=== PATIENT | male | born 1965 | race Caucasian/White ===

== ENCOUNTER 2017-03-16 18:29 | Emergency (ER) | payer SELFPAY ==
[~2017-03-16] VITALS: Ht 175.3 cm; Wt 153.0 kg
[~2017-03-16 18:29] MED LIST: CEFU1TAB43 PO; CIPR750T10 PO; Hydrocodone/Acetaminophen PO; LISI-366 PO; PERI8.6T PO
[2017-03-16 18:34] VITALS: BP 168/96; PULSE 84; RESP 16; TEMP 98; O2SAT 98
[2017-03-16] MEDS ORDERED: LISI-515 PO (18:49)
[2017-03-16] MEDS ORDERED: IBUP1TAB7 PO (19:45)
--- NOTE | 2017-03-16 19:45 | PD ---
HPI Chief Complaint: Pain: Acute or Chronic Time Seen by Provider: 19:35 Travel History International Travel<30 days: No Contact w/Intl Traveler<30days: No Traveled to known affect area: No History of Present Illness HPI 51 -year-old male with left wrist pain since this morning. Denies injury or trauma. No fever or chills. Symptom severity is mild. Aggravated by flexion and extension of the wrist and thumb. Relieved with rest. PFSH Past Medical History Hx Anticoagulant Therapy: No Cancer: No Cardiovascular Problems: Yes (HTN) High Cholesterol: No Diabetes: No Diminished Hearing: No Genitourinary: No Hypertension: Yes Musculoskeletal: No Neurologic: No Psychiatric: No Reproductive: No Respiratory: No Immunizations Current: Yes Thyroid Disease: No Influenza Vaccination: No Past Surgical History Other Surgery: No Social History Alcohol Use: No Tobacco Use: Yes (2 PPD) Substance Use: No Allergies-Medications (Allergen,Severity, Reaction): Coded Allergies: Sulfa (Sulfonamide Antibiotics) (Unverified Allergy, Intermediate, RASH, 03/16/17) bacitracin (Unverified Allergy, Intermediate, RASH, 03/16/17) gramicidin D (Unverified Allergy, Intermediate, RASH, 03/16/17) neomycin (Unverified Allergy, Intermediate, RASH, 03/16/17) polymyxin B (Unverified Allergy, Intermediate, RASH, 03/16/17) Uncoded Allergies: TAPE (Allergy, Mild, ITCHING, 08/14/15) . Reported Meds & Prescriptions Reported Meds & Active Scripts Active Reported Lisinopril 20 Mg Tab 20 Mg PO DAILY Review of Systems Except as stated in HPI: all other systems reviewed are Neg General / Constitutional: No: Fever Physical Exam Narrative GENERAL: Alert male no distress. SKIN: Warm and dry. No erythema HEAD: Normocephalic. EYES: No scleral icterus. No injection or drainage. NECK: Supple, trachea midline. MUSCULOSKELETAL: No cyanosis, or edema. Left upper extremity: Tenderness to the soft tissue of the medial aspect of the wrist and ulnar region of the thumb. No deformity. No warmth or erythema. Full range of motion of the wrist and digits. 2+ radial pulses. Brisk cap refill. Data Data Last Documented VS Vital Signs Date Time Temp Pulse Resp B/P (MAP) Pulse Ox O2 Delivery O2 Flow Rate FiO2 03/16/17 18:34 98.0 84 16 168/96 (120) 98 MDM Medical Decision Making Medical Screen Exam Complete: Yes Emergency Medical Condition: Yes Differential Diagnosis Tendinitis, wrist sprain, carpal tunnel Narrative Course 51-year-old male here with nontraumatic left wrist pain. Extremities neurovascularly intact. Exam consistent with tendinitis. Patient instructed to continue using his wrist splint and take NSAIDs. Diagnosis Primary Impression: Tendinitis of left wrist Referrals: [facility] Departure Forms: Tests/Procedures, Work Release Enter return to work date: Mar 20, 2017 Scripts Ibuprofen (Ibuprofen) 800 Mg Tab 800 MG PO Q6HR Y for PAIN, #40 TAB 0 Refills Prov: Kortney Solo 03/16/17 Disposition: 01 DISCHARGE HOME Condition: Stable Kortney Solo Mar 16, 2017 19:45
== END 2017-03-16 19:53 | disposition home or self-care (01) ==
LOC: PHEFT 18:29
DX: M77.9 Enthesopathy, unspecified (principal); I10 Essential (primary) hypertension; Z72.0 Tobacco use
CPT/HCPCS: 99283